=== PATIENT | female | born 2000 | race Caucasian/White ===

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

== ENCOUNTER 2022-10-20 18:42 | Emergency (ER) | payer MEDICAID, OTHER ==
[~2022-10-20] VITALS: Ht 157.5 cm; Wt 63.5 kg
--- NOTE | 2022-10-20 18:45 | NUR ---
ER at bedside examining patient.
[2022-10-20 19:38] VITALS: BP_SYST 112
--- NOTE | 2022-10-20 19:40 | NUR ---
had suture set by EMT Joe pt in nad, even unlabored respirations tolerated well.
[2022-10-20] MEDS ORDERED: DIPHTH,PERTUSS(ACELL),TET VAC 0.5 ML VIAL (Tdap) I.M. ONE (20:00)
[2022-10-20] MEDS ORDERED: LIDOCAINE 1% 10 MG/ML, 20 ML MDV INJ ONE (20:00)
[2022-10-20] MEDS ORDERED: BACITRACIN 1 GM OINT TP ONE (20:00)
[2022-10-20 21:11] VITALS: BP_SYST 112
--- NOTE | 2022-10-20 21:19 | NUR ---
Patient given written and verbal discharge instructions and verbalizes understanding. ER MD discussed with patient the results and treatment provided. Patient in stable condition. ID arm band removed. Patient educated on finger nail removal and to follow up with PMD. Opportunity for questions provided and answered. Medication side effect fact sheet provided.
== END 2022-10-20 21:10 | disposition home or self-care (01) ==
LOC: SED 18:42
DX: S61.306A Unspecified open wound of right little finger with damage to nail, initial encounter (principal); Z79.899 Other long term (current) drug therapy; X58.XXXA Exposure to other specified factors, initial encounter; Y93.89 Activity, other specified; Y92.89 Other specified places as the place of occurrence of the external cause; Y99.8 Other external cause status
CPT/HCPCS: 90715; 99284